=== PATIENT | female | born 1985 | race Caucasian/White ===

== ENCOUNTER 2022-10-22 09:06 | Day surgery (SDC) | payer MEDICAID ==
[2022-10-20 12:16] LABS: HCG,QUAL RESULT NEGATIVE (NEGATIVE)
[~2022-10-22] VITALS: Ht 154.9 cm; Wt 68.0 kg
[2022-10-22] MEDS ORDERED: fentaNYL CITRATE/PF 100 MCG/2 ML AMP ONE (12:00)
[2022-10-22] MEDS ORDERED: ROCURONIUM BROMIDE 10 MG/ML (ZEMURON) ONE (12:00)
[2022-10-22] MEDS ORDERED: PROPOFOL 200MG/ 20ML VIAL (DIPRIVAN) IV ONE (12:00)
[2022-10-22] MEDS ORDERED: SEVOFLURANE 15 MIN GAS INH ONE (12:00)
[2022-10-22] MEDS ORDERED: MIDAZOLAM HCL 2 MG/2 ML VIAL (VERSED) ONE (12:00)
[2022-10-22] MEDS ORDERED: DEXAMETHASONE SOD PHOSPHATE 4 MG/ML VIAL ONE (12:00)
[2022-10-22] MEDS ORDERED: MEPERIDINE HCL/PF 25 MG/ML DISP.SYRIN IVP PRN (13:15)
[2022-10-22] MEDS ORDERED: METOCLOPRAMIDE HCL 10 MG/2 ML VIAL IVP PRN (13:15)
[2022-10-22] MEDS ORDERED: ONDANSETRON HCL 4 MG/2 ML VIAL IVP PRN (13:15)
[2022-10-22] MEDS ORDERED: KETOROLAC TROMETHAMINE 30 MG VIAL IVP PRN (13:15)
[2022-10-22 15:13] VITALS: BP_SYST 135
== END 2022-10-22 14:50 | disposition home or self-care (01) ==
LOC: SDS 09:06 → SMU 09:07 → SDS 14:50
PROVIDERS: ATTEND Obstetrics & Gynecology
DX: Z30.2 Encounter for sterilization (principal); I10 Essential (primary) hypertension; Z20.822 Contact with and (suspected) exposure to COVID-19
CPT/HCPCS: 84703; 36415 ×2; 58670; 87426; U0003; J1100; J3465; J2704; J3010